=== PATIENT | female | born 1950 | race African-American/Black ===

== ENCOUNTER 2017-07-04 14:31 | Emergency (ER) | payer OTHER ==
[~2017-07-04] VITALS: Ht 157.5 cm; Wt 84.2 kg
[2017-07-04] MEDS ORDERED: CITALOPRAM HBR20 MG PO (15:36)
[2017-07-04] MEDS ORDERED: TRAMADOL HCL50 MG PO (15:36)
[2017-07-04] MEDS ORDERED: LEVOTHYROXINE150 MCG PO (15:36)
[2017-07-04] MEDS ORDERED: AMLODIPINE BESY10 MG PO (15:36)
[2017-07-04] MEDS ORDERED: FENOFIBRATE160 M1 PO (15:36)
[2017-07-04] MEDS ORDERED: TRIAMTERENE-HC1 EAC1 PO (15:37)
[2017-07-04] MEDS ORDERED: CEPHALEXIN500 MG PO (15:37)
[2017-07-04 15:47] LABS: ADD MIUA? YES; BILIRUBIN NEGATIVE; BLOOD MODERATE; COLOR YELLOW ((YELLOW)); GLUCOSE (STRIP) NEGATIVE; KETONES NEGATIVE; LEUKOCYTES LARGE; NITRITE NEGATIVE; PROTEIN (STRIP) 30; SPECIFIC GRAVITY 1.023 (1.000-1.030)
[2017-07-04 16:01] LABS: BACTERIA RARE /HPF; EPITHELIAL CELLS 1+ /HPF; MUCUS NONE SEEN /LPF; RED BLOOD CELLS 15-20 /HPF (0-5); UCUL ADDED? YES; WHITE BLOOD CELLS TNTC /HPF (0-5)
[2017-07-04 17:11] LABS: EOSINOPHIL (%) 4.3 % (0-5); EOSINOPHIL COUNT 0.3 K/uL (0-0.3); HEMATOCRIT 37.6 % (36.0-46.0); IMMATURE GRANULOCYTE (%) 0.3 % (0.0-0.7); INSTRUMENT ABS NEUTROPHIL CT 4.1 K/uL; LYMPHOCYTE COUNT 2.6 K/uL (1.0-2.8); MCH 27.6 PG (29.0-34.0); MCHC 31.9 G/DL (30.0-36.0); MCV 86.4 FL (83-99); MEAN PLAT.VOLUME 11.7 uM^3 (9.5-12.4); MONOCYTE (%) 9.3 % (3-12); MONOCYTE COUNT 0.7 K/uL (0-0.8); NEUTROPHIL (%) 52.4 % (45-76); NEUTROPHIL COUNT 4.1 K/uL (1.8-6.4); PLATELET COUNT 252 K/uL (156-360); RBC DIS.WIDTH-CV 14.5 % (11.8-14.6); RED BLOOD COUNT 4.35 M/uL (3.80-5.20); WHITE BLOOD COUNT 7.8 K/uL (4.1-10.2)
[2017-07-04 17:28] LABS: CHLORIDE 104 mEq/L (99-109); POTASSIUM 3.8 mEq/L (3.7-5.4); SODIUM 139 mEq/L (136-147)
[2017-07-04 17:30] LABS: GLUCOSE 91 mg/dL (70-99)
[2017-07-04 17:31] LABS: ANION GAP 10 MEQ/L (2-14)
[2017-07-04 17:32] LABS: TOTAL BILIRUBIN 0.2 mg/dL (0.0-1.0)
[2017-07-04 17:33] LABS: ALKALINE PHOSPHATASE 48 IU/L (3-129)
[2017-07-04 17:34] LABS: GFR ESTIMATE (CALCULATED) > 59 mL/min/
[2017-07-04 17:35] LABS: UREA NITROGEN (BUN) 17 mg/dL (9-23)
[2017-07-04 17:37] LABS: LIPASE 22 U/L (1.0-51.0)
[2017-07-04] MEDS ORDERED: PYRIDIUM200 MG PO (18:10)
[2017-07-04] MEDS ORDERED: ZOFRAN ODT4 MG PO (18:10)
[2017-07-04] MEDS ORDERED: ZANTAC300 MG PO (18:10)
[2017-07-04] MEDS ORDERED: LEVAQUIN500 MG PO ×2 (18:10→18:18)
[2017-07-04 18:30] VITALS: BP 137/82
== END 2017-07-04 18:30 | disposition home or self-care (01) ==
LOC: EME 14:31
PROVIDERS: Physician Assistant
DX: N30.00 Acute cystitis without hematuria (principal); I10 Essential (primary) hypertension; E78.5 Hyperlipidemia, unspecified; K57.30 Diverticulosis of large intestine without perforation or abscess without bleeding; K29.70 Gastritis, unspecified, without bleeding; K76.0 Fatty (change of) liver, not elsewhere classified
CPT/HCPCS: 74176; 80053; 81003; 83690; 85025; 87077; 87086; 87186; 99281; 99284